=== PATIENT | female | born 1990 ===

== ENCOUNTER 2017-01-14 20:25 | Emergency (ER) | payer SELFPAY ==
[2017-01-14 20:37] VITALS: BP 122/81
[2017-01-14] MEDS ORDERED: DECADRON IM ONE (21:25)
--- NOTE | 2017-01-14 21:39 | Emergency Department Report ---
ED ENT HPI - General Chief complaint: Dental/Oral Stated complaint: LT SIDE FACIAL SWELLING Time Seen by Provider: 01/14/17 21:06 Source: patient Mode of arrival: Ambulatory Limitations: No Limitations - History of Present Illness Initial comments: Patient is a 26-year-old female who presents to ED with complaints of pain to the left upper tooth which is cracked since this morning. Patient also reports of swelling to the area. Denies any other symptoms. MD complaint: tooth pain Onset/Timin -: Sudden, days(s) Location: tooth # 1 - Cracked tooth, gum swelling, dental tenderness. Severity: moderate Severity scale (0 -10): 8 Quality: aching, constant Consistency: constant Improves with: none Worsens with: eating Context- Dental: history of dental caries Associated Symptoms: gum swelling, toothache. denies: fever, cough, pain with swallowing, sore throat, tinnitus, hearing loss - Related Data Previous Rx's Medication Instructions Recorded Last Taken Type Ibuprofen [Motrin] 800 mg PO Q8HR PRN #21 tablet 01/14/17 Unknown Rx Penicillin Vk [Veetids TAB] 500 mg PO QID #40 tablet 01/14/17 Unknown Rx Allergies Allergy/AdvReac Type Severity Reaction Status Date / Time naproxen Allergy Hives Verified 01/14/17 20:33 tramadol Allergy Hives Verified 01/14/17 20:33 ED Dental HPI - General Chief complaint: Dental/Oral Stated complaint: LT SIDE FACIAL SWELLING Time Seen by Provider: 01/14/17 21:06 Source: patient Mode of arrival: Ambulatory Limitations: No Limitations - Related Data Previous Rx's Medication Instructions Recorded Last Taken Type Ibuprofen [Motrin] 800 mg PO Q8HR PRN #21 tablet 01/14/17 Unknown Rx Penicillin Vk [Veetids TAB] 500 mg PO QID #40 tablet 01/14/17 Unknown Rx Allergies Allergy/AdvReac Type Severity Reaction Status Date / Time naproxen Allergy Hives Verified 01/14/17 20:33 tramadol Allergy Hives Verified 01/14/17 20:33 ED Review of Systems ROS: Stated complaint: LT SIDE FACIAL SWELLING Other details as noted in HPI Constitutional: denies: chills, fever Eyes: denies: eye pain, eye discharge, vision change ENT: dental pain. denies: ear pain, throat pain Respiratory: denies: cough, shortness of breath, wheezing Cardiovascular: denies: chest pain, palpitations Neurological: denies: headache, weakness, paresthesias Psychiatric: denies: anxiety, depression ED Past Medical Hx - Past Medical History Previous Medical History?: No - Surgical History Past Surgical History?: No - Social History Smoking Status: Current Every Day Smoker Substance Use Type: Alcohol - Medications Home Medications: Home Medications Medication Instructions Recorded Confirmed Last Taken Type Ibuprofen [Motrin] 800 mg PO Q8HR PRN #21 tablet 01/14/17 Unknown Rx Penicillin Vk [Veetids TAB] 500 mg PO QID #40 tablet 01/14/17 Unknown Rx ED Physical Exam - General Limitations: No Limitations General appearance: alert, in no apparent distress - Head Head exam: Present: atraumatic, normocephalic - Eye Eye exam: Present: normal appearance - Expanded ENT Exam Expanded Teeth exam: Present: dental caries, dental tenderness # 1 - Dental Tenderness, Other (mild swelling noted to the gums.) Throat exam: Positive: normal inspection - Respiratory Respiratory exam: Present: normal lung sounds bilaterally. Absent: respiratory distress - Cardiovascular Cardiovascular Exam: Present: regular rate, normal rhythm. Absent: systolic murmur, diastolic murmur, rubs, gallop - Neurological Exam Neurological exam: Present: alert, oriented X3 - Psychiatric Psychiatric exam: Present: normal affect, normal mood ED Course Vital Signs 01/14/17 20:33 Temperature 98.4 F Pulse Rate 68 Respiratory 20 Rate Blood Pressure 122/81 O2 Sat by Pulse 100 Oximetry ED Medical Decision Making - Medical Decision Making Patient is resting comfortably. No trismus, drooling, or significant facial swelling noted at this time. Administered Decadron 10 mg IM and will start patient on penicillin and motrin for now. Advised follow-up with dentist in 2- 3 days. - Differential Diagnosis dental abscess, dental infection, dental tenderness, dental caries. Critical care attestation.: If time is entered above; I have spent that time in minutes in the direct care of this critically ill patient, excluding procedure time. ED Disposition Clinical Impression: Dental abscess Disposition: DISCHARGED TO HOME OR SELFCARE Is pt being admited?: No Does the pt Need Aspirin: No Condition: Stable Instructions: Dental Abscess (ED), Dental Caries (ED), Toothache (ED) Prescriptions: Ibuprofen [Motrin] 800 mg PO Q8HR PRN #21 tablet PRN Reason: Pain , Severe (7-10) Penicillin Vk [Veetids TAB] 500 mg PO QID #40 tablet Referrals: PRIMARY CARE,MD [Primary Care Provider] - 3-5 Days
== END 2017-01-14 21:51 | disposition home or self-care (01) ==
LOC: ED 20:25
DX: K04.7 Periapical abscess without sinus (principal); F17.200 Nicotine dependence, unspecified, uncomplicated; Z88.8 Allergy status to other drugs, medicaments and biological substances
CPT/HCPCS: 96372; 99282; J1100